=== PATIENT | male | born 2000 | race Caucasian/White ===

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

== ENCOUNTER 2021-08-17 10:21 | Emergency (ER) | payer BC ==
[~2021-08-17] VITALS: Ht 172.7 cm; Wt 63.5 kg
[2021-08-17] MEDS ORDERED: LIDOCAINE 1% HCL (LOCAL ANESTH.) INJ 20ML MDV ONE (10:30)
[2021-08-17] MEDS ORDERED: cefTRIAXone SOD 1,000 MG VL IM ONE (10:30)
[2021-08-17] MEDS ORDERED: methylPREDNISolone SOD SUCC 125 MG/2 ML VL IM ONE (10:30)
[2021-08-17] MEDS ORDERED: methylPREDNISolone SOD SUCC 125 MG/2 ML VL ONE (10:30)
[2021-08-17] MEDS ORDERED: IBUPROFEN 800 MG TAB PO ONE (10:30)
[2021-08-17] MEDS ORDERED: cefTRIAXone SOD 1,000 MG VL ONE (10:31)
[2021-08-17 10:48] VITALS: BP 119/75
== END 2021-08-17 11:01 | disposition home or self-care (01) ==
LOC: ER 10:21
DX: J03.90 Acute tonsillitis, unspecified (principal); H66.91 Otitis media, unspecified, right ear
CPT/HCPCS: 87070; 87880; 96372; 99284; J0696; J2001; J2930

== ENCOUNTER 2021-09-09 08:06 | Emergency (ER) | payer BC ==
[~2021-09-09] VITALS: Ht 172.7 cm; Wt 61.7 kg
[2021-09-09] MEDS ORDERED: SODIUM CHLORIDE 0.9% 1,000 ML IV ONE (08:30)
[2021-09-09] MEDS ORDERED: PANTOPRAZOLE 40 MG/10 ML VIAL INJ IV ONE (08:30)
[2021-09-09] MEDS ORDERED: ONDANSETRON HCL 4 MG/2 ML VIAL IV ONE (08:30)
[2021-09-09] MEDS ORDERED: ONDANSETRON ODT 4 MG TAB PO ONE ×2 (08:45→09:30)
[2021-09-09 09:04] LABS: Basophils # (auto) 0.1 10 ^3/uL (0-0.2); Basophils % (auto) 0.6 % (0.0-2.0); Eosinophils # (auto) 0 10 ^3/uL (0-0.8); Eosinophils % (auto) 0.4 % (0.0-7.0); Hemoglobin 14.9 g/dL (13.5-17.5); Lymphocytes # (auto) 1.4 10 ^3/uL (0.4-5.4); Lymphocytes % (auto) 14.3 % (10.0-50.0); Mean Corpuscular Hemoglobin 27.4 pg (28.0-32.0); Mean Corpuscular Hgb Conc. 33.9 g/dL (32.0-36.0); Mean Corpuscular Volume 80.9 fL (80.0-100.0); Monocytes # (auto) 0.4 10 ^3/uL (0-1.3); Monocytes % (auto) 4.1 % (0.0-12.0); Neutrophils % (auto) 80.6 % (37.0-80.0); Red Blood Cells 5.44 10^6/uL (4.5-5.90); Red Cell Distribution Width 13.2 % (11.8-14.3)
[2021-09-09 09:09] VITALS: BP 141/48
[2021-09-09 09:46] LABS: Potassium 4.1 mmol/L (3.5-5.1)
[2021-09-09 09:52] LABS: Albumin 4.4 g/dL (3.4-5.0); BUN/Creatinine Ratio 10.4; Bilirubin, Total 2.7 mg/dL (0.2-1.0); Calcium 9.4 mg/dL (8.5-10.1); Total Protein 8.4 g/dL (6.4-8.2)
== END 2021-09-09 10:02 | disposition home or self-care (01) ==
LOC: ER 08:06
DX: F12.188 Cannabis abuse with other cannabis-induced disorder (principal)
CPT/HCPCS: 36415; 74176; 80053; 82150; 83690; 85025; 96361; 96374; 99284; C9113; Q0162